=== PATIENT | male | born 1950 | race Caucasian/White ===

== ENCOUNTER 2021-08-13 06:53 | Inpatient (IN) | payer MEDICARE ==
[2021-08-13] VITALS (8 sets, daily range): BP systolic 124–143; BP diastolic 67–73
[~2021-08-13] VITALS: Ht 193 cm; Wt 77.8 kg
[~2021-08-13 06:53] MED LIST: ASPIRIN ADULT L81 M1 PO; B12,B-12,B 12500 MC1 PO; MOTRIN800 MG PO
[2021-08-13 07:53] LABS: HEMATOCRIT 31.3 % (42.0-52.0); MEAN CELL VOLUME 81.3 fl (80.0-94.0); MEAN CORPUSCULAR HGB 29.6 pg (27.0-31.0); MEAN CORPUSCULAR HGB CONC 36.4 g/dl (33.0-37.0); MEAN PLATELET VOLUME 9.1 fl (9.6-12.3); PLATELET COUNT AUTOMATED 166 10*3/uL (130-400); RED BLOOD COUNT 3.85 10*6/uL (4.50-5.90); RED CELL DISTRI WIDTH 14.1 % (0-14.5)
[2021-08-13 07:55] LABS: MANUAL DIFF REFLEX YES
[2021-08-13 08:11] LABS: ALKALINE PHOSPHATASE 360 U/L (45-117); BUN 16 mg/dl (7-24); CHLORIDE 79 mmol/L (98-107); CREATININE 0.78 mg/dL (0.70-1.30); POTASSIUM 4.2 mmol/L (3.5-5.1); SGOT/AST 128 IU/L (3-35); SGPT/ALT 47 U/L (12-78)
[2021-08-13 08:27] LABS: PLATELET SUFFICIENCY NORMAL (NORMAL); TOTAL CELLS COUNTED 100 #CELLS
[2021-08-13 08:28] LABS: SODIUM 112 mmol/L (136-145)
[2021-08-13 11:17] LABS: BILIRUBIN 2+ (Negative); BLOOD Negative (Negative); CLARITY Cloudy (Clear); COLOR Dark Yellow (Yellow); GLUCOSE Negative (Negative); KETONE 2+ (Negative); LEUKO ESTERASE Trace (Negative); NITRITE Negative (Negative); SPECIFIC GRAVITY 1.025 (1.001-1.030)
[2021-08-13 11:29] LABS: MUCOUS TRACE; RBC 0-2 rbc/hpf (0-2)
[2021-08-13 12:32] LABS: ALKALINE PHOSPHATASE 360 U/L (45-117); BUN 14 mg/dl (7-24); CHLORIDE 82 mmol/L (98-107); CREATININE 0.62 mg/dL (0.70-1.30); POTASSIUM 4.8 mmol/L (3.5-5.1); SGOT/AST 140 IU/L (3-35); SGPT/ALT 48 U/L (12-78); TOTAL PROTEIN 5.8 gm/dL (6.4-8.2)
[2021-08-13 12:43] LABS: SODIUM 111 mmol/L (136-145)
[2021-08-13] MEDS ORDERED: TYLENOL325 M2 PO (13:54)
[2021-08-13 16:24] LABS: BUN 13 mg/dl (7-24); CHLORIDE 81 mmol/L (98-107); CREATININE 0.53 mg/dL (0.70-1.30); POTASSIUM 4.2 mmol/L (3.5-5.1); SGOT/AST 140 IU/L (3-35); SGPT/ALT 44 U/L (12-78); TOTAL PROTEIN 5.8 gm/dL (6.4-8.2); URIC ACID 4.2 mg/dL (3.5-7.2)
[2021-08-13 16:25] LABS: ALKALINE PHOSPHATASE 350 U/L (45-117)
[2021-08-13 16:27] LABS: SODIUM 112 mmol/L (136-145)
[2021-08-13 17:07] LABS: URINE CHLORIDE, RANDOM 12 mmol/L
[2021-08-13 20:35] LABS: ALKALINE PHOSPHATASE 371 U/L (45-117); BUN 13 mg/dl (7-24); CHLORIDE 83 mmol/L (98-107); CREATININE 0.55 mg/dL (0.70-1.30); POTASSIUM 4.4 mmol/L (3.5-5.1); SGOT/AST 162 IU/L (3-35); SGPT/ALT 51 U/L (12-78); TOTAL PROTEIN 6.1 gm/dL (6.4-8.2)
[2021-08-13 20:38] LABS: SODIUM 112 mmol/L (136-145)
[2021-08-14] VITALS: BP 110/59
[2021-08-14 00:47] LABS: ALKALINE PHOSPHATASE 319 U/L (45-117); BUN 14 mg/dl (7-24); CHLORIDE 84 mmol/L (98-107); CREATININE 0.56 mg/dL (0.70-1.30); POTASSIUM 4.6 mmol/L (3.5-5.1); SGOT/AST 155 IU/L (3-35); SGPT/ALT 43 U/L (12-78); TOTAL PROTEIN 5.4 gm/dL (6.4-8.2)
[2021-08-14 00:54] LABS: SODIUM 111 mmol/L (136-145)
[2021-08-14 05:49] LABS: ALKALINE PHOSPHATASE 357 U/L (45-117); BUN 14 mg/dl (7-24); CHLORIDE 83 mmol/L (98-107); CREATININE 0.55 mg/dL (0.70-1.30); SGOT/AST 165 IU/L (3-35); SGPT/ALT 46 U/L (12-78); TOTAL PROTEIN 5.6 gm/dL (6.4-8.2)
[2021-08-14 05:54] LABS: SODIUM 114 mmol/L (136-145)
[2021-08-14 06:05] LABS: HEMATOCRIT 28.6 % (42.0-52.0); MEAN CELL VOLUME 81.5 fl (80.0-94.0); MEAN CORPUSCULAR HGB 29.9 pg (27.0-31.0); MEAN CORPUSCULAR HGB CONC 36.7 g/dl (33.0-37.0); MEAN PLATELET VOLUME 9.5 fl (9.6-12.3); PLATELET COUNT AUTOMATED 159 10*3/uL (130-400); RED BLOOD COUNT 3.51 10*6/uL (4.50-5.90); RED CELL DISTRI WIDTH 14.1 % (0-14.5); WHITE BLOOD COUNT 10.7 10*3/uL (4.8-10.8)
[2021-08-14 06:22] LABS: MANUAL DIFF REFLEX YES
[2021-08-14 06:49] LABS: VITAMIN D, 25-HYDROXY 6.1 ng/mL (30-100)
[2021-08-14 07:05] LABS: PLATELET SUFFICIENCY NORMAL (NORMAL); TOTAL CELLS COUNTED 100 #CELLS
[2021-08-14 08:00] VITALS: BP 117/60
[2021-08-14 08:43] LABS: ALKALINE PHOSPHATASE 376 U/L (45-117); BUN 13 mg/dl (7-24); CHLORIDE 85 mmol/L (98-107); CREATININE 0.58 mg/dL (0.70-1.30); POTASSIUM 4.3 mmol/L (3.5-5.1); SGOT/AST 195 IU/L (3-35); SGPT/ALT 52 U/L (12-78); TOTAL PROTEIN 5.8 gm/dL (6.4-8.2)
[2021-08-14 08:54] LABS: SODIUM 116 mmol/L (136-145)
[2021-08-14 12:00] VITALS: BP 85/60
[2021-08-14 12:43] LABS: ALKALINE PHOSPHATASE 392 U/L (45-117); BUN 14 mg/dl (7-24); CHLORIDE 85 mmol/L (98-107); CREATININE 0.55 mg/dL (0.70-1.30); POTASSIUM 4.2 mmol/L (3.5-5.1); SGOT/AST 195 IU/L (3-35); SGPT/ALT 53 U/L (12-78); TOTAL PROTEIN 5.7 gm/dL (6.4-8.2)
[2021-08-14 12:51] LABS: SODIUM 115 mmol/L (136-145)
[2021-08-14 16:00] VITALS: BP 104/53
[2021-08-14 20:00] VITALS: BP 103/71
[2021-08-15] VITALS: BP 98/52
[2021-08-15 06:51] LABS: BUN 16 mg/dl (7-24); CHLORIDE 89 mmol/L (98-107); CREATININE 0.57 mg/dL (0.70-1.30); POTASSIUM 4.2 mmol/L (3.5-5.1)
[2021-08-15 07:12] LABS: SODIUM 118 mmol/L (136-145)
[2021-08-15 08:00] VITALS: BP 136/62
[2021-08-15 12:00] VITALS: BP 133/48
[2021-08-15 13:55] LABS: BUN 17 mg/dl (7-24); CHLORIDE 91 mmol/L (98-107); CREATININE 0.57 mg/dL (0.70-1.30); POTASSIUM 3.8 mmol/L (3.5-5.1)
[2021-08-15 13:59] LABS: SODIUM 119 mmol/L (136-145)
[2021-08-15 16:00] VITALS: BP 122/67
[2021-08-15 20:00] VITALS: BP 109/61
[2021-08-16] VITALS: BP 127/66
[2021-08-16 05:58] LABS: ALKALINE PHOSPHATASE 421 U/L (45-117); BUN 16 mg/dl (7-24); CHLORIDE 91 mmol/L (98-107); CREATININE 0.57 mg/dL (0.70-1.30); POTASSIUM 3.9 mmol/L (3.5-5.1); SGOT/AST 216 IU/L (3-35); SGPT/ALT 53 U/L (12-78); SODIUM 121 mmol/L (136-145); TOTAL PROTEIN 5.5 gm/dL (6.4-8.2)
[2021-08-16 06:24] LABS: HEMATOCRIT 28.5 % (42.0-52.0); MEAN CELL VOLUME 84.3 fl (80.0-94.0); MEAN CORPUSCULAR HGB 30.2 pg (27.0-31.0); MEAN CORPUSCULAR HGB CONC 35.8 g/dl (33.0-37.0); MEAN PLATELET VOLUME 9.8 fl (9.6-12.3); NUCLEATED RED BLOOD CELL 0.3 % (0.0-0.0); PLATELET COUNT AUTOMATED 166 10*3/uL (130-400); RED BLOOD COUNT 3.38 10*6/uL (4.50-5.90); RED CELL DISTRI WIDTH 14.8 % (0-14.5); WHITE BLOOD COUNT 7.6 10*3/uL (4.8-10.8)
[2021-08-16 06:31] LABS: MANUAL DIFF REFLEX YES
[2021-08-16 07:11] LABS: ATYPICAL LYMPHS 1 % (0-0); TOTAL CELLS COUNTED 100 #CELLS
[2021-08-16 07:12] LABS: BURR CELLS MODERATE; POLYCHROMASIA SLIGHT; TOXIC GRANULATION SLIGHT; VACUOLATION OF NEUTROPHILS SLIGHT
[2021-08-16 07:13] LABS: PLATELET SUFFICIENCY NORMAL (NORMAL)
[2021-08-16 08:00] VITALS: BP 121/64
[2021-08-16 12:00] VITALS: BP 107/56
[2021-08-16 13:59] LABS: ABG BASE EXCESS -3.9 mmol/L (-2.0-2.0); ARTERIAL BLOOD GAS PH 7.393 (7.35-7.45); ARTERIAL BLOOD GAS PO2 68.6 (80-90)
[2021-08-16 16:00] VITALS: BP 120/54
[2021-08-16 17:59] LABS: BUN 16 mg/dl (7-24); CHLORIDE 92 mmol/L (98-107); CREATININE 0.49 mg/dL (0.70-1.30); SODIUM 123 mmol/L (136-145)
[2021-08-16 20:00] VITALS: BP 119/58
[2021-08-17] VITALS: BP 119/66
[2021-08-17 05:25] LABS: BUN 16 mg/dl (7-24); CHLORIDE 96 mmol/L (98-107); POTASSIUM 3.9 mmol/L (3.5-5.1); SODIUM 125 mmol/L (136-145)
[2021-08-17 08:00] VITALS: BP 128/65
[2021-08-17 12:00] VITALS: BP 122/51
[2021-08-17 16:00] VITALS: BP 134/77
[2021-08-17 20:00] VITALS: BP 122/64
[2021-08-18] VITALS: BP 117/54
[2021-08-18 05:25] LABS: BUN 14 mg/dl (7-24); CHLORIDE 97 mmol/L (98-107); CREATININE 0.45 mg/dL (0.70-1.30); SODIUM 129 mmol/L (136-145)
[2021-08-18 05:57] LABS: HEMATOCRIT 27.2 % (42.0-52.0); MEAN CORPUSCULAR HGB 29.4 pg (27.0-31.0); MEAN CORPUSCULAR HGB CONC 34.6 g/dl (33.0-37.0); MEAN PLATELET VOLUME 9.5 fl (9.6-12.3); NUCLEATED RED BLOOD CELL 0.6 % (0.0-0.0); PLATELET COUNT AUTOMATED 120 10*3/uL (130-400); RED CELL DISTRI WIDTH 15.5 % (0-14.5); WHITE BLOOD COUNT 5.3 10*3/uL (4.8-10.8)
[2021-08-18 06:12] LABS: MANUAL DIFF REFLEX YES
[2021-08-18 06:27] LABS: BURR CELLS FEW; PLATELET SUFFICIENCY LOW (NORMAL); TOTAL CELLS COUNTED 100 #CELLS
[2021-08-18 08:00] VITALS: BP 111/57
[2021-08-18 12:00] VITALS: BP 113/60
[2021-08-18 16:00] VITALS: BP 95/56
[2021-08-18 20:00] VITALS: BP 62/42
[2021-08-18 21:25] VITALS: BP 77/36
== END 2021-08-18 23:40 | disposition hospice, inpatient (51) | DRG 643 ==
LOC: ED 06:53 → 4E 11:08 → EDHOLD 11:08 → 4E 17:11
PROVIDERS: Hospitalist; Internal Medicine; Internal Medicine Critical Care Medicine; Internal Medicine Nephrology; ADMIT Student in an Organized Health Care Education/Training Program; ATTEND Student in an Organized Health Care Education/Training Program
PROC: 0HBRXZZ Excision of Toe Nail, External Approach (ICD-10-PCS; principal; 2021-08-16)
PROC: 0HBRXZZ Excision of Toe Nail, External Approach (ICD-10-PCS; 2021-08-16)
PROC: 0HBRXZZ Excision of Toe Nail, External Approach (ICD-10-PCS; 2021-08-16)
PROC: 0HBRXZZ Excision of Toe Nail, External Approach (ICD-10-PCS; 2021-08-16)
PROC: 0HBRXZZ Excision of Toe Nail, External Approach (ICD-10-PCS; 2021-08-16)
PROC: 0HBRXZZ Excision of Toe Nail, External Approach (ICD-10-PCS; 2021-08-16)
PROC: 0HBRXZZ Excision of Toe Nail, External Approach (ICD-10-PCS; 2021-08-16)
PROC: 0HBRXZZ Excision of Toe Nail, External Approach (ICD-10-PCS; 2021-08-16)
PROC: 0HBRXZZ Excision of Toe Nail, External Approach (ICD-10-PCS; 2021-08-16)
PROC: 0HBRXZZ Excision of Toe Nail, External Approach (ICD-10-PCS; 2021-08-16)
PROC: 5A0935A Assistance with Respiratory Ventilation, Less than 24 Consecutive Hours, High Flow/Velocity Cannula (ICD-10-PCS; 2021-08-18)
DX: E22.2 Syndrome of inappropriate secretion of antidiuretic hormone (principal); J96.01 Acute respiratory failure with hypoxia; E43 Unspecified severe protein-calorie malnutrition; G93.41 Metabolic encephalopathy; I87.1 Compression of vein; R91.8 Other nonspecific abnormal finding of lung field; E87.8 Other disorders of electrolyte and fluid balance, not elsewhere classified; R74.01 Elevation of levels of liver transaminase levels; R74.8 Abnormal levels of other serum enzymes; F17.210 Nicotine dependence, cigarettes, uncomplicated; D72.829 Elevated white blood cell count, unspecified; D64.9 Anemia, unspecified; B35.1 Tinea unguium; Z66 Do not resuscitate; S51.811A Laceration without foreign body of right forearm, initial encounter; X58.XXXA Exposure to other specified factors, initial encounter; Y93.89 Activity, other specified; Y92.89 Other specified places as the place of occurrence of the external cause; Y99.8 Other external cause status; Z51.5 Encounter for palliative care; Z86.73 Personal history of transient ischemic attack (TIA), and cerebral infarction without residual deficits; Z82.49 Family history of ischemic heart disease and other diseases of the circulatory system; Z71.6 Tobacco abuse counseling; Z68.20 Body mass index [BMI] 20.0-20.9, adult; Z20.822 Contact with and (suspected) exposure to COVID-19

== ENCOUNTER 2021-08-18 23:57 | Inpatient (IN) | payer OTHER ==
[~2021-08-18 23:57] MED LIST changes: +TYLENOL325 M2 PO
[2021-08-19 01:15] VITALS: BP 65/43; BP 96/48
== END 2021-08-19 02:28 | DRG 189 ==
LOC: 4E 23:57
PROVIDERS: ADMIT Student in an Organized Health Care Education/Training Program; ATTEND Student in an Organized Health Care Education/Training Program
DX: J96.00 Acute respiratory failure, unspecified whether with hypoxia or hypercapnia (principal); Z51.5 Encounter for palliative care; R91.8 Other nonspecific abnormal finding of lung field; Z66 Do not resuscitate; D72.829 Elevated white blood cell count, unspecified; D64.9 Anemia, unspecified